=== PATIENT | female | born 1950 | race Caucasian/White ===

== ENCOUNTER 2018-11-13 11:45 | Emergency (ER) | payer MEDICARE, MEDICAID ==
[~2018-11-13] VITALS: Ht 180.3 cm; Wt 81.8 kg
[2018-11-13] MEDS ORDERED: normal saline 1000ML IV soln IVB ONE (11:55)
[2018-11-13] MEDS ORDERED: ondansetron/PF 4mg/2ml inj IV ONE (11:55)
[2018-11-13] MEDS ORDERED: morphine 4 MG/ML inj SYRINge IV PRN (11:55)
[2018-11-13 12:13] LABS: BASOPHILS % (AUTO) 0.9 % (0-1); EOSINOPHILS # (AUTO) 0.3 X10'3 (0-0.9); EOSINOPHILS % (AUTO) 8.1 % (0-6); HEMATOCRIT 37.1 % (35.0-45.0); HEMOGLOBIN 12.7 g/dl (12.0-16.0); LYMPHOCYTES # (AUTO) 0.9 X10'3 (1.1-4.8); LYMPHOCYTES % (AUTO) 21.5 % (21-51); MEAN CORPUSCULAR HEMOGLOBIN 35.1 PG (27.0-31.0); MEAN CORPUSCULAR HGB CONC 34.4 g/dL (33.0-36.5); MEAN CORPUSCULAR VOLUME 102.1 FL (78-98); MEAN PLATELET VOLUME 8.2 FL (7.4-10.4); MONOCYTES # (AUTO) 0.4 X10'3 (0-0.9); MONOCYTES % (AUTO) 9.4 % (2-12); NEUTROPHILS # (AUTO) 2.5 X10'3 (1.8-7.7); NEUTROPHILS % (AUTO) 60.1 % (42-75); PLATELET COUNT 56 X10'3 (140-440); RED BLOOD COUNT 3.63 X10'6 (4.20-5.60); RED CELL DISTRIBUTION WIDTH 13.8 % (11.5-14.5); WHITE BLOOD COUNT 4.2 X10'3 (4.5-11.0)
[2018-11-13 12:31] LABS: ALANINE AMINOTRANSFERASE 19 U/L (12-78); ALBUMIN 2.8 G/DL (3.4-5.0); ALBUMIN/GLOBULIN RATIO 0.7 (1.1-1.5); ALKALINE PHOSPHATASE 101 IU/L (46-116); ANION GAP 7 (8-16); ASPARTATE AMINO TRANSFERASE 36 U/L (10-37); BILIRUBIN,TOTAL 2.8 MG/DL (0.1-1.0); BLOOD UREA NITROGEN 10 MG/DL (7-18); BUN/CREATININE RATIO 16.1 (6.6-38.0); CALCIUM 8.6 MG/DL (8.5-10.1); CHLORIDE 106 MMOL/L (99-107); CREATININE 0.62 MG/DL (0.40-0.90); GLUCOSE 145 MG/DL (70-104); POTASSIUM 3.5 MMOL/L (3.5-5.1); SODIUM 140 MMOL/L (135-145); TOTAL CARBON DIOXIDE 26.8 MMOL/L (24-32); TOTAL PROTEIN 6.8 G/DL (6.4-8.2); eGFR > 90 ML/MIN
[2018-11-13] MEDS ORDERED: fentaNYL/PF 50MCG/1 ML 2ML syringe IV ONE (12:50)
[2018-11-13] MEDS ORDERED: DOCU-148 PO (13:03)
[2018-11-13] MEDS ORDERED: HYDR-4383 PO (13:03)
[2018-11-13 13:48] VITALS: BP 179/85
== END 2018-11-13 13:49 | disposition home or self-care (01) ==
LOC: ER 11:46
DX: S42.251A Displaced fracture of greater tuberosity of right humerus, initial encounter for closed fracture (principal); S42.211A Unspecified displaced fracture of surgical neck of right humerus, initial encounter for closed fracture; M54.2 Cervicalgia; Z79.899 Other long term (current) drug therapy; W01.0XXA Fall on same level from slipping, tripping and stumbling without subsequent striking against object, initial encounter; Y93.89 Activity, other specified; Y92.098 Other place in other non-institutional residence as the place of occurrence of the external cause; Y99.8 Other external cause status
CPT/HCPCS: 36415; 70450; 72125; 73030; 80053; 85025; 96374; 96375; 99284; J2270; J2405; J3010; J7030

== ENCOUNTER 2021-06-04 07:49 | Day surgery (SDC) | payer MEDICARE, MEDICAID ==
[~2021-06-04] VITALS: Ht 180.3 cm; Wt 66.6 kg
[~2021-06-04 07:49] MED LIST: DILT180C66 PO; LACT10SO32 PO; LIDOcaine 1%/PF 5ML 10 MG/ML VIAL IJ ONE
[2021-06-04 08:05] VITALS: BP 110/67
[2021-06-04] MEDS ORDERED: SPIR50TA5 PO (08:35)
[2021-06-04] MEDS ORDERED: MULT-1085 PO (08:35)
[2021-06-04] MEDS ORDERED: DIPH25CA83 PO (08:35)
[2021-06-04] MEDS ORDERED: ACET-1008 PO (08:35)
[2021-06-04] MEDS ORDERED: [UNRECOGNIZED DRUG - CODE] PO (08:35)
[2021-06-04] MEDS ORDERED: FURO-149 PO (08:35)
[2021-06-04] MEDS ORDERED: albumin 25% 100mL bottle x 1 IV PRN (08:35)
[2021-06-04] MEDS ORDERED: SUCR1ORA15 PO (08:35)
[2021-06-04] MEDS ORDERED: POTA-205 PO (08:35)
[2021-06-04] MEDS ORDERED: LIDO700A32 TOP (08:35)
[2021-06-04] MEDS ORDERED: GABA-530 PO (08:35)
[2021-06-04] MEDS ORDERED: BISA-155 PO (08:35)
[2021-06-04] MEDS ORDERED: HYDR-3972 PO (08:35)
[2021-06-04] MEDS ORDERED: CYCL5TAB PO (08:38)
[2021-06-04] MEDS ORDERED: MAGN400O6 PO (08:46)
[2021-06-04] MEDS ORDERED: BISA10SU60 RC (08:46)
[2021-06-04] MEDS ORDERED: ALBU8.5H17 INH (08:46)
[2021-06-04 09:30] VITALS: BP 141/80
== END 2021-06-04 10:56 | disposition home or self-care (01) ==
LOC: SSTAY O 07:49
PROVIDERS: ATTEND Radiology Vascular & Interventional Radiology
DX: R18.8 Other ascites (principal); Z53.8 Procedure and treatment not carried out for other reasons; R14.0 Abdominal distension (gaseous); D72.819 Decreased white blood cell count, unspecified; N12 Tubulo-interstitial nephritis, not specified as acute or chronic; K74.60 Unspecified cirrhosis of liver; J44.9 Chronic obstructive pulmonary disease, unspecified; Z86.19 Personal history of other infectious and parasitic diseases; Z90.710 Acquired absence of both cervix and uterus; Z98.890 Other specified postprocedural states; Z79.899 Other long term (current) drug therapy
CPT/HCPCS: 76705